=== PATIENT | male | born 1985 | race Caucasian/White ===

== ENCOUNTER 2022-09-09 21:28 | Inpatient (IN) | payer MEDICAID ==
[~2022-09-09] VITALS: Ht 177.8 cm; Wt 85.9 kg
[~2022-09-09 21:28] MED LIST: FLUO20TA28 PO; TRAZ-251 PO
[2022-09-09] MEDS ORDERED: vancomycin/NS 1 GM ADD-VANTAGE 250 ML IV ONE (23:55)
[2022-09-09] MEDS ORDERED: normal saline 1000ML IV soln IV ONE (23:55)
[2022-09-10 00:54] LABS: BASOPHILS # (AUTO) 0.1 X10'3 (0-0.2); BASOPHILS % (AUTO) 0.7 % (0-1); EOSINOPHILS # (AUTO) 0.2 X10'3 (0-0.9); EOSINOPHILS % (AUTO) 1.5 % (0-6); HEMATOCRIT 35.5 % (42.0-52.0); HEMOGLOBIN 12.1 g/dl (14.0-17.9); LYMPHOCYTES # (AUTO) 2.5 X10'3 (1.1-4.8); LYMPHOCYTES % (AUTO) 21.7 % (21-51); MEAN CORPUSCULAR HEMOGLOBIN 30.9 PG (27.0-31.0); MEAN CORPUSCULAR HGB CONC 34.1 g/dL (33.0-36.5); MEAN CORPUSCULAR VOLUME 90.5 FL (78-98); MEAN PLATELET VOLUME 7.2 FL (7.4-10.4); MONOCYTES # (AUTO) 1.3 X10'3 (0-0.9); MONOCYTES % (AUTO) 11.1 % (2-12); NEUTROPHILS # (AUTO) 7.6 X10'3 (1.8-7.7); PLATELET COUNT 509 X10'3 (140-440); RED BLOOD COUNT 3.92 X10'6 (4.70-6.10); RED CELL DISTRIBUTION WIDTH 13.2 % (11.5-14.5); WHITE BLOOD COUNT 11.7 X10'3 (4.5-11.0)
[2022-09-10 01:07] LABS: ALANINE AMINOTRANSFERASE 23 U/L (12-78); ALBUMIN 2.3 G/DL (3.4-5.0); ALBUMIN/GLOBULIN RATIO 0.5 (1.1-1.5); ALKALINE PHOSPHATASE 98 IU/L (46-116); ANION GAP 5 (8-16); ASPARTATE AMINO TRANSFERASE 23 U/L (10-37); BILIRUBIN,TOTAL 0.2 MG/DL (0.1-1.0); BLOOD UREA NITROGEN 10 MG/DL (7-18); BUN/CREATININE RATIO 18.5 (5.4-32.0); CALCIUM 7.8 MG/DL (8.5-10.1); CHLORIDE 104 MMOL/L (99-107); CREATININE 0.54 MG/DL (0.60-1.10); GLUCOSE 88 MG/DL (70-104); MAGNESIUM 1.9 MG/DL (1.5-2.4); SODIUM 140 MMOL/L (135-145); TOTAL CARBON DIOXIDE 30.6 MMOL/L (24-32); TOTAL PROTEIN 6.5 G/DL (6.4-8.2); eGFR > 90 ML/MIN
[2022-09-10 01:09] LABS: POTASSIUM 2.9 MMOL/L (3.5-5.1)
[2022-09-10 01:44] LABS: PLATELET ESTIMATE INCREASED; TOTAL CELLS COUNTED 100
[2022-09-10 01:47] LABS: ETHANOL < 0.010 GM/DL (0.0-0.010)
[2022-09-10] MEDS ORDERED: acetaminophen 325mg tablet PO PRN (02:10)
[2022-09-10] MEDS ORDERED: magnesium 4gm in 100ml NS 100 ML IV PRN ×2 (02:10→17:45)
[2022-09-10] MEDS ORDERED: mag hydrox/Alum hydrox/simeth 30ml oral suspension PO PRN (02:10)
[2022-09-10] MEDS ORDERED: potassium Cl 40MEQ/1/2NS 520ml 520 ML IV PRN (02:10)
[2022-09-10] MEDS ORDERED: potassium Cl 20 mEq SR tablet PO PRN (02:10)
[2022-09-10] MEDS ORDERED: magnesium Cl slow-release 64mg tablet PO PRN (02:10)
[2022-09-10] MEDS ORDERED: magnesium hydroxide 30ml (MOM) UD suspension PO PRN (02:10)
[2022-09-10] MEDS ORDERED: NO HOME MEDS (02:26)
[2022-09-10] MEDS: HYDROcodone/acetaminophen 5mg/325mg tablet PO PRN (04:07)
[2022-09-10 04:34] LABS: CLARITY,URINE CLEAR (Clear); COLOR,URINE YELLOW (Yellow); GLUCOSE, URINE NEGATIVE (Neg); KETONES,URINE NEGATIVE (Neg); LEUKOCYTE ESTERASE ,URINE NEGATIVE (Neg); NITRITES, URINE NEGATIVE (Neg); OCCULT BLOOD,URINE NEGATIVE (Neg); PROTEIN,URINE NEGATIVE (Neg); UROBILINOGEN,URINE 0.2 E.U/dL (0.2-1.0)
[2022-09-10 04:39] LABS: UA COLLECTION TYPE CLN CATCH MIDSTREAM
[2022-09-10 04:49] LABS: URINE AMPHETAMINE SCREEN POSITIVE (Neg); URINE BARBITUATE SCREEN NEGATIVE (Neg); URINE BENZODIAZEPINES SCREEN NEGATIVE (Neg); URINE COCAINE SCREEN NEGATIVE (Neg); URINE METHADONE SCREEN NEGATIVE (Neg); URINE OPIATE SCREEN NEGATIVE (Neg); URINE PHENCYCLIDINE SCREEN NEGATIVE (Neg)
--- NOTE | 2022-09-10 07:31 | NUR ---
REPORT GIVEN TO ISREAL BRIGGS GOING TO ROOM 4006M
[2022-09-10] MEDS: heparin, porcine 5000 units/ml vial SQ SCH ×2 (08:00→20:02)
[2022-09-10] MEDS ORDERED: clindamycin 150mg capsule PO SCH (08:00)
[2022-09-10] MEDS: K and/or MAG REPLACEMENT MC SCH ×2 (08:00→20:00)
[2022-09-10 08:10] VITALS: BP 118/77
[2022-09-10] MEDS ORDERED: loperamide 2mg capsule PO PRN (09:55)
[2022-09-10] MEDS ORDERED: iohexol 300mg/ml 100ml inj. ONE (10:21)
[2022-09-10] MEDS: clindamycin 600mg/D5W 50ml 50 ML IV SCH ×3 (11:15→20:02)
[2022-09-10] MEDS: docusate sod 100mg capsule PO SCH ×2 (11:18→20:00)
[2022-09-10] MEDS: vancomycin/NS 1 GM ADD-VANTAGE 250 ML IV SCH ×2 (12:26→17:34)
--- NOTE | 2022-09-10 13:38 | NUR ---
PRESSURE ULCER EDUCATION: DEFINITION: A pressure ulcer is an area of skin that breaks down when you stay in one position too long. The constant pressure against the skin reduces the blood flow to that area and the affected tissue dies. CAUSES: "Being bedridden or in a wheelchair "Fragile skin "Having a chronic condition, such as diabetes or vascular disease "Inability to move certain parts of your body without assistance "Older age "Incontinence of urine or stool SYMPTOMS: "A reddened area that DOES NOT turn white when pressed on - this can be the beginning of a pressure ulcer "A blister, deep sore or a crater - these can be advanced pressure ulcers FIRST AID: "Relieve the pressure on this area "Keep the area clean and dry "Call your primary doctor if you see any of the above symptoms "DO NOT massage the area "DO NOT use a donut shaped or ring shaped pillow- these actually interfere with the blood flow and cause complications PREVENTION: "Check for pressure ulcers everyday "Change position at least every two hours to relieve pressure "Use items that help relieve pressure- pillows, sheepskin, foam padding, and powders. "Keep skin clean and dry "Eat healthy well balanced meals "Exercise daily IF YOU SEE ANY OF THESE SYMPTOMS WHILE IN THE HOSPITAL - TELL YOUR NURSE IMMEDIATELY. IF YOU SEE ANY OF THESE SYMPTOMS WHILE AT HOME OR HAVE ANY QUESTIONS OR CONCERNS ABOUT PRESSURE ULCERS - CALL YOUR PRIMARY DOCTOR IMMEDIATELY. Addendum: 09/10/22 at 1339 by Jaci Moya LVN Amended: Links added.
[2022-09-10] MEDS: potassium Cl 20 mEq SR tablet PO PRN ×2 (14:33→20:01)
[2022-09-10 18:00] VITALS: BP 96/68
--- NOTE | 2022-09-10 18:15 | NUR ---
Report to Bijal SOLIS
[2022-09-10] MEDS ORDERED: K and/or MAG REPLACEMENT MC SCH (20:00)
--- NOTE | 2022-09-10 21:37 | NUR ---
Student documentation: I have reviewed and agree with all interventions, assessments performed and documented by Kristien RODRIGUEZ with my documented exceptions..
[2022-09-10 22:00] VITALS: BP 119/66
--- NOTE | 2022-09-10 22:45 | NUR ---
Student Medication Administration: For this medication-pass time frame, all medication were reviewed, dispensed, administered and documented per hospital policy by Kristine.
[2022-09-10] MEDS ORDERED: VANCOMYCIN LEVEL IV ONE (23:30)
[2022-09-11] MEDS: vancomycin/NS 1 GM ADD-VANTAGE 250 ML IV SCH
[2022-09-11] MEDS: VANCOmycin 1250MG/NS 250ml Bag 250 ML IV SCH ×3 (00:40→16:23)
[2022-09-11] MEDS: clindamycin 600mg/D5W 50ml 50 ML IV SCH ×4 (02:16→20:00)
--- NOTE | 2022-09-11 06:30 | NUR ---
Report to Elizabeth SOLIS.
[2022-09-11 06:48] LABS: BASOPHILS # (AUTO) 0.1 X10'3 (0-0.2); BASOPHILS % (AUTO) 0.9 % (0-1); EOSINOPHILS # (AUTO) 0.1 X10'3 (0-0.9); EOSINOPHILS % (AUTO) 1.3 % (0-6); HEMATOCRIT 32.7 % (42.0-52.0); HEMOGLOBIN 10.9 g/dl (14.0-17.9); LYMPHOCYTES # (AUTO) 2.3 X10'3 (1.1-4.8); LYMPHOCYTES % (AUTO) 25.3 % (21-51); MEAN CORPUSCULAR HEMOGLOBIN 30.5 PG (27.0-31.0); MEAN CORPUSCULAR HGB CONC 33.2 g/dL (33.0-36.5); MEAN CORPUSCULAR VOLUME 91.8 FL (78-98); MEAN PLATELET VOLUME 7.1 FL (7.4-10.4); MONOCYTES # (AUTO) 1.2 X10'3 (0-0.9); MONOCYTES % (AUTO) 13.2 % (2-12); NEUTROPHILS # (AUTO) 5.5 X10'3 (1.8-7.7); NEUTROPHILS % (AUTO) 59.3 % (42-75); PLATELET COUNT 429 X10'3 (140-440); RED BLOOD COUNT 3.57 X10'6 (4.70-6.10); RED CELL DISTRIBUTION WIDTH 13.3 % (11.5-14.5); WHITE BLOOD COUNT 9.2 X10'3 (4.5-11.0)
[2022-09-11 07:09] LABS: ALANINE AMINOTRANSFERASE 32 U/L (12-78); ALBUMIN/GLOBULIN RATIO 0.5 (1.1-1.5); ALKALINE PHOSPHATASE 95 IU/L (46-116); ANION GAP 3 (8-16); ASPARTATE AMINO TRANSFERASE 43 U/L (10-37); BILIRUBIN,TOTAL 0.2 MG/DL (0.1-1.0); BLOOD UREA NITROGEN 10 MG/DL (7-18); BUN/CREATININE RATIO 16.1 (5.4-32.0); CALCIUM 7.7 MG/DL (8.5-10.1); CHLORIDE 108 MMOL/L (99-107); CREATININE 0.62 MG/DL (0.60-1.10); GLUCOSE 97 MG/DL (70-104); POTASSIUM 4.4 MMOL/L (3.5-5.1); SODIUM 142 MMOL/L (135-145); TOTAL CARBON DIOXIDE 30.7 MMOL/L (24-32); TOTAL PROTEIN 5.7 G/DL (6.4-8.2); eGFR > 90 ML/MIN
[2022-09-11 07:10] VITALS: BP 109/65
[2022-09-11] MEDS: HYDROcodone/acetaminophen 5mg/325mg tablet PO PRN ×3 (07:20→19:59)
[2022-09-11 07:56] LABS: PLATELET ESTIMATE NORMAL; TOTAL CELLS COUNTED 100
[2022-09-11] MEDS: K and/or MAG REPLACEMENT MC SCH ×2 (08:00→20:00)
[2022-09-11] MEDS: docusate sod 100mg capsule PO SCH ×2 (08:00→20:00)
[2022-09-11] MEDS: heparin, porcine 5000 units/ml vial SQ SCH ×2 (08:31→20:00)
[2022-09-11 19:00] VITALS: BP 112/61
--- NOTE | 2022-09-11 20:43 | NUR ---
Pt. is awake alert oriented to person and place disoriented to time. Would like to eat more food extra nourishment provided, will request extra tray. Right leg dressing intact with mod amt of serous drainage.skin is warm dry and pink right foot pedal pulse intact. Right arm Peripheral IV intact NS infusing with antibiotic. Plan for dressing change twice a day with xeroform.
[2022-09-11] MEDS: ondansetron/PF 4mg/2ml inj IV PRN (22:06)
[2022-09-11] MEDS ORDERED: VANCOMYCIN LEVEL IV ONE (23:30)
[2022-09-12] MEDS: VANCOmycin 1250MG/NS 250ml Bag 250 ML IV SCH ×2 (00:32→08:22)
--- NOTE | 2022-09-12 01:34 | NUR ---
Vanco level checked 11.5 Dose given as ordered.
[2022-09-12] MEDS: clindamycin 600mg/D5W 50ml 50 ML IV SCH ×4 (02:08→19:44)
[2022-09-12 06:00] VITALS: BP 114/81
[2022-09-12] MEDS: ondansetron/PF 4mg/2ml inj IV PRN (06:22)
[2022-09-12 06:31] LABS: BASOPHILS # (AUTO) 0.1 X10'3 (0-0.2); BASOPHILS % (AUTO) 0.7 % (0-1); EOSINOPHILS # (AUTO) 0.2 X10'3 (0-0.9); EOSINOPHILS % (AUTO) 1.3 % (0-6); HEMATOCRIT 35.5 % (42.0-52.0); HEMOGLOBIN 11.9 g/dl (14.0-17.9); LYMPHOCYTES # (AUTO) 2.4 X10'3 (1.1-4.8); LYMPHOCYTES % (AUTO) 19.1 % (21-51); MEAN CORPUSCULAR HEMOGLOBIN 30.7 PG (27.0-31.0); MEAN CORPUSCULAR HGB CONC 33.6 g/dL (33.0-36.5); MEAN CORPUSCULAR VOLUME 91.3 FL (78-98); MEAN PLATELET VOLUME 6.9 FL (7.4-10.4); MONOCYTES # (AUTO) 1.3 X10'3 (0-0.9); MONOCYTES % (AUTO) 10.6 % (2-12); NEUTROPHILS # (AUTO) 8.4 X10'3 (1.8-7.7); NEUTROPHILS % (AUTO) 68.3 % (42-75); PLATELET COUNT 505 X10'3 (140-440); RED BLOOD COUNT 3.89 X10'6 (4.70-6.10); RED CELL DISTRIBUTION WIDTH 13.2 % (11.5-14.5); WHITE BLOOD COUNT 12.4 X10'3 (4.5-11.0)
[2022-09-12 06:50] LABS: ALANINE AMINOTRANSFERASE 43 U/L (12-78); ALBUMIN 2.1 G/DL (3.4-5.0); ALBUMIN/GLOBULIN RATIO 0.5 (1.1-1.5); ALKALINE PHOSPHATASE 113 IU/L (46-116); ANION GAP 0 (8-16); ASPARTATE AMINO TRANSFERASE 36 U/L (10-37); BILIRUBIN,TOTAL 0.2 MG/DL (0.1-1.0); BLOOD UREA NITROGEN 17 MG/DL (7-18); CALCIUM 7.8 MG/DL (8.5-10.1); CHLORIDE 104 MMOL/L (99-107); CREATININE 0.63 MG/DL (0.60-1.10); GLUCOSE 102 MG/DL (70-104); POTASSIUM 4.6 MMOL/L (3.5-5.1); SODIUM 136 MMOL/L (135-145); TOTAL CARBON DIOXIDE 31.6 MMOL/L (24-32); TOTAL PROTEIN 6.3 G/DL (6.4-8.2); eGFR > 90 ML/MIN
[2022-09-12] MEDS: heparin, porcine 5000 units/ml vial SQ SCH ×2 (07:30→19:43)
[2022-09-12] MEDS: docusate sod 100mg capsule PO SCH ×2 (08:00→19:44)
[2022-09-12] MEDS: K and/or MAG REPLACEMENT MC SCH ×2 (08:00→19:42)
[2022-09-12 09:58] VITALS: BP 111/65
[2022-09-12] MEDS: VANCOMYCIN 1,500MG in normal saline IV soln 300 ML IV SCH (15:38)
[2022-09-12] MEDS: HYDROcodone/acetaminophen 5mg/325mg tablet PO PRN (15:41)
--- NOTE | 2022-09-12 16:59 | NUR ---
pt cooperative this shift. pt drank a significant amount of milk and had a sizable appetite this shift. Pt had large amount of urine output. wound care performed per orders. Will continue to monitor pt
[2022-09-12 22:00] VITALS: BP 108/68
[2022-09-13] MEDS: VANCOMYCIN 1,500MG in normal saline IV soln 300 ML IV SCH ×5 (00:06→22:59)
[2022-09-13] MEDS: clindamycin 600mg/D5W 50ml 50 ML IV SCH ×3 (02:37→09:33)
[2022-09-13 06:00] VITALS: BP 105/61
[2022-09-13 06:06] LABS: BASOPHILS # (AUTO) 0.1 X10'3 (0-0.2); BASOPHILS % (AUTO) 0.6 % (0-1); EOSINOPHILS # (AUTO) 0.2 X10'3 (0-0.9); HEMATOCRIT 39.6 % (42.0-52.0); HEMOGLOBIN 13.3 g/dl (14.0-17.9); LYMPHOCYTES # (AUTO) 1.9 X10'3 (1.1-4.8); LYMPHOCYTES % (AUTO) 12.6 % (21-51); MEAN CORPUSCULAR HEMOGLOBIN 30.8 PG (27.0-31.0); MEAN CORPUSCULAR HGB CONC 33.6 g/dL (33.0-36.5); MEAN CORPUSCULAR VOLUME 91.6 FL (78-98); MEAN PLATELET VOLUME 6.8 FL (7.4-10.4); MONOCYTES # (AUTO) 1.3 X10'3 (0-0.9); NEUTROPHILS # (AUTO) 11.4 X10'3 (1.8-7.7); NEUTROPHILS % (AUTO) 76.8 % (42-75); PLATELET COUNT 552 X10'3 (140-440); RED BLOOD COUNT 4.33 X10'6 (4.70-6.10); RED CELL DISTRIBUTION WIDTH 13.4 % (11.5-14.5); WHITE BLOOD COUNT 14.8 X10'3 (4.5-11.0)
[2022-09-13 06:16] LABS: ALANINE AMINOTRANSFERASE 45 U/L (12-78); ALBUMIN 2.4 G/DL (3.4-5.0); ALBUMIN/GLOBULIN RATIO 0.5 (1.1-1.5); ALKALINE PHOSPHATASE 123 IU/L (46-116); ANION GAP 5 (8-16); ASPARTATE AMINO TRANSFERASE 32 U/L (10-37); BILIRUBIN,TOTAL 0.2 MG/DL (0.1-1.0); BLOOD UREA NITROGEN 19 MG/DL (7-18); BUN/CREATININE RATIO 28.4 (5.4-32.0); CALCIUM 8.5 MG/DL (8.5-10.1); CHLORIDE 102 MMOL/L (99-107); CREATININE 0.67 MG/DL (0.60-1.10); GLUCOSE 109 MG/DL (70-104); SODIUM 136 MMOL/L (135-145); TOTAL CARBON DIOXIDE 29.1 MMOL/L (24-32); TOTAL PROTEIN 7.2 G/DL (6.4-8.2); eGFR > 90 ML/MIN
[2022-09-13 06:49] LABS: PLATELET ESTIMATE INCREASED; TOTAL CELLS COUNTED 100
[2022-09-13] MEDS: docusate sod 100mg capsule PO SCH ×2 (07:01→20:25)
[2022-09-13] MEDS: heparin, porcine 5000 units/ml vial SQ SCH ×2 (07:01→20:26)
[2022-09-13] MEDS: K and/or MAG REPLACEMENT MC SCH ×2 (07:57→20:00)
[2022-09-13] MEDS: HYDROcodone/acetaminophen 5mg/325mg tablet PO PRN (09:38)
[2022-09-13] MEDS: CefTRIAXone 2gm/D5W 50ml BAG 50 ML IV SCH (11:55)
[2022-09-13] MEDS: metroNIDAZOLE 500mg tablet PO SCH ×2 (13:13→20:25)
--- NOTE | 2022-09-13 15:14 | NUR ---
WOUND INFECTION EDUCATION PROVIDED BY WOUND CARE 1. Patient instructed to call their primary doctor, or go the ED immediately if any of the following symptoms occur: * Increased pain in wound * Increase in drainage from the wound * Redness in the skin surrounding the wound * Warmth in the skin surrounding the wound * Bleeding from the wound * Temperature of 101 or greater 2. If any of these occur while in the hospital tell a nurse immediately. Addendum: 09/13/22 at 1515 by Jaci Moya LVN Amended: Links added.
[2022-09-13] MEDS ORDERED: VANCOMYCIN LEVEL IV ONE (15:30)
[2022-09-13] MEDS ORDERED: GADOTERATE MEGLUMINE 7.5 MMOL/15 ML VIAL IV ONE (17:02)
--- NOTE | 2022-09-13 17:23 | NUR ---
pt continues to have impressive appetite. large urine output this shift as well. wound care performed per orders. bowel movement this am shift. will continue to monitor pt
--- NOTE | 2022-09-13 18:15 | NUR ---
Patient in room ORTH[facility] 4006. I have received report from Lo SOLIS and had the opportunity to ask questions and assume patient care.
[2022-09-13 22:00] VITALS: BP 118/56
[2022-09-14] MEDS: VANCOMYCIN 1,500MG in normal saline IV soln 300 ML IV SCH ×2 (04:44→11:07)
[2022-09-14 06:00] VITALS: BP 123/69
--- NOTE | 2022-09-14 06:26 | NUR ---
Problems reprioritized. Patient report given, questions answered & plan of care reviewed with Damion SOLIS.
[2022-09-14 06:56] LABS: BASOPHILS # (AUTO) 0.1 X10'3 (0-0.2); BASOPHILS % (AUTO) 0.6 % (0-1); EOSINOPHILS # (AUTO) 0.2 X10'3 (0-0.9); EOSINOPHILS % (AUTO) 1.6 % (0-6); HEMATOCRIT 37.1 % (42.0-52.0); HEMOGLOBIN 12.5 g/dl (14.0-17.9); LYMPHOCYTES # (AUTO) 2.1 X10'3 (1.1-4.8); LYMPHOCYTES % (AUTO) 17.1 % (21-51); MEAN CORPUSCULAR HEMOGLOBIN 30.9 PG (27.0-31.0); MEAN CORPUSCULAR HGB CONC 33.6 g/dL (33.0-36.5); MEAN CORPUSCULAR VOLUME 91.9 FL (78-98); MEAN PLATELET VOLUME 6.9 FL (7.4-10.4); MONOCYTES # (AUTO) 1.1 X10'3 (0-0.9); MONOCYTES % (AUTO) 9.1 % (2-12); NEUTROPHILS # (AUTO) 8.9 X10'3 (1.8-7.7); NEUTROPHILS % (AUTO) 71.6 % (42-75); PLATELET COUNT 451 X10'3 (140-440); RED BLOOD COUNT 4.03 X10'6 (4.70-6.10); WHITE BLOOD COUNT 12.4 X10'3 (4.5-11.0)
[2022-09-14 07:16] LABS: ALANINE AMINOTRANSFERASE 50 U/L (12-78); ALBUMIN 2.3 G/DL (3.4-5.0); ALBUMIN/GLOBULIN RATIO 0.5 (1.1-1.5); ALKALINE PHOSPHATASE 137 IU/L (46-116); ANION GAP 6 (8-16); ASPARTATE AMINO TRANSFERASE 42 U/L (10-37); BILIRUBIN,TOTAL 0.2 MG/DL (0.1-1.0); BLOOD UREA NITROGEN 26 MG/DL (7-18); BUN/CREATININE RATIO 38.8 (5.4-32.0); CALCIUM 8.4 MG/DL (8.5-10.1); CHLORIDE 103 MMOL/L (99-107); CREATININE 0.67 MG/DL (0.60-1.10); GLUCOSE 107 MG/DL (70-104); POTASSIUM 4.4 MMOL/L (3.5-5.1); SODIUM 138 MMOL/L (135-145); TOTAL CARBON DIOXIDE 29.1 MMOL/L (24-32); TOTAL PROTEIN 6.8 G/DL (6.4-8.2); eGFR > 90 ML/MIN
[2022-09-14 07:34] LABS: PLATELET ESTIMATE INCREASED; TOTAL CELLS COUNTED 100
[2022-09-14] MEDS: K and/or MAG REPLACEMENT MC SCH ×2 (08:00→20:00)
[2022-09-14] MEDS: CefTRIAXone 2gm/D5W 50ml BAG 50 ML IV SCH (08:07)
[2022-09-14] MEDS: metroNIDAZOLE 500mg tablet PO SCH ×3 (08:07→21:00)
[2022-09-14] MEDS: docusate sod 100mg capsule PO SCH ×2 (08:07→21:03)
[2022-09-14] MEDS: heparin, porcine 5000 units/ml vial SQ SCH ×2 (08:08→21:04)
[2022-09-14 10:00] VITALS: BP 132/79
[2022-09-14] MEDS: HYDROcodone/acetaminophen 5mg/325mg tablet PO PRN (11:10)
[2022-09-14] MEDS ORDERED: VANCOMYCIN LEVEL IV ONE (16:30)
[2022-09-14 18:00] VITALS: BP 136/85
[2022-09-14] MEDS: VANCOmycin 1250MG/NS 250ml Bag 250 ML IV SCH ×2 (19:10→23:35)
[2022-09-14 22:00] VITALS: BP 110/60
--- NOTE | 2022-09-15 03:46 | NUR ---
Student documentation: I have reviewed and agree with all interventions, assessments performed and documented by Deisy, student RN.
[2022-09-15] MEDS: VANCOmycin 1250MG/NS 250ml Bag 250 ML IV SCH ×4 (05:02→23:18)
--- NOTE | 2022-09-15 06:21 | NUR ---
Problems reprioritized. Patient report given, questions answered & plan of care reviewed with Gely SOLIS.
--- NOTE | 2022-09-15 06:41 | NUR ---
Patient in room ORTH[facility] 4006. I have received report from Amy Arita and had the opportunity to ask questions and assume patient care.
[2022-09-15 06:43] VITALS: BP 102/58
[2022-09-15] MEDS: K and/or MAG REPLACEMENT MC SCH ×2 (07:39→20:00)
[2022-09-15] MEDS: metroNIDAZOLE 500mg tablet PO SCH ×3 (07:48→21:08)
[2022-09-15] MEDS: CefTRIAXone 2gm/D5W 50ml BAG 50 ML IV SCH (07:48)
[2022-09-15] MEDS: heparin, porcine 5000 units/ml vial SQ SCH ×2 (07:49→21:09)
[2022-09-15] MEDS: docusate sod 100mg capsule PO SCH ×2 (07:57→21:08)
[2022-09-15] MEDS ORDERED: VANCOMYCIN LEVEL IV ONE (10:30)
[2022-09-15 11:25] LABS: WHITE BLOOD COUNT 9.9 X10'3 (4.5-11.0)
[2022-09-15 11:26] LABS: BASOPHILS # (AUTO) 0.1 X10'3 (0-0.2); BASOPHILS % (AUTO) 0.6 % (0-1); EOSINOPHILS # (AUTO) 0.2 X10'3 (0-0.9); EOSINOPHILS % (AUTO) 1.6 % (0-6); HEMATOCRIT 37.7 % (42.0-52.0); HEMOGLOBIN 12.6 g/dl (14.0-17.9); LYMPHOCYTES # (AUTO) 1.6 X10'3 (1.1-4.8); LYMPHOCYTES % (AUTO) 16.3 % (21-51); MEAN CORPUSCULAR HEMOGLOBIN 30.8 PG (27.0-31.0); MEAN CORPUSCULAR HGB CONC 33.3 g/dL (33.0-36.5); MEAN CORPUSCULAR VOLUME 92.4 FL (78-98); MONOCYTES % (AUTO) 10.1 % (2-12); NEUTROPHILS % (AUTO) 71.4 % (42-75); PLATELET COUNT 455 X10'3 (140-440); RED BLOOD COUNT 4.08 X10'6 (4.70-6.10); RED CELL DISTRIBUTION WIDTH 13.2 % (11.5-14.5)
[2022-09-15 11:36] LABS: ALANINE AMINOTRANSFERASE 103 U/L (12-78); ALBUMIN 2.4 G/DL (3.4-5.0); ALBUMIN/GLOBULIN RATIO 0.5 (1.1-1.5); ALKALINE PHOSPHATASE 162 IU/L (46-116); ANION GAP 6 (8-16); ASPARTATE AMINO TRANSFERASE 111 U/L (10-37); BILIRUBIN,TOTAL 0.2 MG/DL (0.1-1.0); BLOOD UREA NITROGEN 17 MG/DL (7-18); BUN/CREATININE RATIO 28.3 (5.4-32.0); CALCIUM 8.3 MG/DL (8.5-10.1); CHLORIDE 102 MMOL/L (99-107); GLUCOSE 127 MG/DL (70-104); POTASSIUM 4.1 MMOL/L (3.5-5.1); SODIUM 136 MMOL/L (135-145); TOTAL CARBON DIOXIDE 27.7 MMOL/L (24-32); TOTAL PROTEIN 6.9 G/DL (6.4-8.2); VANCOMYCIN,TROUGH 16.6 UG/ML (6.0-14.0); eGFR > 90 ML/MIN
--- NOTE | 2022-09-15 12:51 | NUR ---
Initial: Pt admit DX RLE cellulitis w/ distal calf abscess, schizophrenia, meth/tobacco abuse, hypokalemia, and homelessness per EMR. RLE cluster of 4 wounds depth undeterminable given necrotic tissue per WOC note. Pt PO 100% avg regular diet meeting estimated needs. LBM 09/14 per EMR. No nutrition interventions at this time. Will continue to follow. Rec: 1. continue regular diet 2. routine bowel care 3. scaled wt this admit; subsequent weekly wts Addendum: 09/15/22 at [address] Amended: Links added.
--- NOTE | 2022-09-15 15:15 | NUR ---
Patient has had increasingly frequent outbursts of yelling obscenities, and arguing with people/things that are not present. Patient is tangential in speech, poor historian and unable to make congruent sentences. Patient stated he has liven in [place], [place], [place], [place], [place] etc, indicating 19 months, 22 days and 2 days as lengths of time. patient stated his parents are both . His father was killed in a logging accident and him mother passed in an auto accident recently. Unknown if this is accurate. Patient stated he lives [place] bridge in [place] - unknown which one. He does not have any friends and "finds people who are smoking pot or have a drink" and stays with them in the homeless environment. Patient is very labile in mood, his affect is blunt and at times, pressured speech. Patient is obviously having auditory/visual hallucinations, his ability to maintain eye contact is poor and concentration is difficult. Patient is observed meticulously zipping/unzipping zippers on his backpack, organizing/reorganizing items in his room, places urinals (used) in random locations within the room. Patient was turning up the music very loudly. He also placed the laundry bin underneath the door handle to prevent the door from opening. Patient denies being seen for any mental health concerns but said he had visited the [facility] a couple of times. Patient is oblivious to his malodorousness, declines any bathing amenities. Patient has significant wound to his lower extremity and would most likely be unable to care for himself or provide wound care while out in the community.
--- NOTE | 2022-09-15 17:59 | NUR ---
Patient continues to have seemingly uncontrollable outbursts. Patient bangs tray item together making very loud noises, throwing things on the floor.
[2022-09-15 18:00] VITALS: BP 138/80
--- NOTE | 2022-09-15 18:20 | NUR ---
Problems reprioritized. Patient report given, questions answered & plan of care reviewed with Amy Arita
[2022-09-15 22:00] VITALS: BP 136/78
--- NOTE | 2022-09-16 02:46 | NUR ---
Student documentation: I have reviewed and agree with all interventions, assessments performed and documented by YOANA Olivas student.
[2022-09-16] MEDS: VANCOmycin 1250MG/NS 250ml Bag 250 ML IV SCH (04:55)
[2022-09-16 06:00] VITALS: BP 110/66
--- NOTE | 2022-09-16 06:49 | NUR ---
Problems reprioritized. Patient report given, questions answered & plan of care reviewed with Sabra RN.
[2022-09-16] MEDS: CefTRIAXone 2gm/D5W 50ml BAG 50 ML IV SCH (07:59)
[2022-09-16] MEDS: metroNIDAZOLE 500mg tablet PO SCH (08:00)
[2022-09-16] MEDS: docusate sod 100mg capsule PO SCH (08:00)
[2022-09-16] MEDS: heparin, porcine 5000 units/ml vial SQ SCH (08:01)
--- NOTE | 2022-09-16 12:13 | NUR ---
patient stated he wanted to leave. patient stated the doctor told him he could leave he just has to wait for another dr. we told patient he has to wait. the tech went into room around 1130am and saw the patient was gone along with his stuff. I checked room to see if I could find the iv. I could not find the iv. i advised the research manager, security and I called pepper non emergent dispatcher gave her a description of patient. i paged the hospitalist.
== END 2022-09-16 11:30 | disposition left against medical advice (07) | DRG 383 ==
LOC: ER 21:28 → ED HOLD 09-10 02:10 → ORTHO 4S 09-10 08:05
PROVIDERS: ADMIT Internal Medicine; ATTEND Family Medicine
PROC: BQ2R1ZZ Computerized Tomography (CT Scan) of Right Lower Extremity using Low Osmolar Contrast (ICD-10-PCS; principal; 2022-09-10)
DX: L03.115 Cellulitis of right lower limb (principal); E11.9 Type 2 diabetes mellitus without complications; L02.415 Cutaneous abscess of right lower limb; F17.200 Nicotine dependence, unspecified, uncomplicated; E87.6 Hypokalemia; F15.20 Other stimulant dependence, uncomplicated; F20.9 Schizophrenia, unspecified; Z53.29 Procedure and treatment not carried out because of patient's decision for other reasons; Z59.00 Homelessness unspecified; Z56.0 Unemployment, unspecified; Z79.899 Other long term (current) drug therapy; Z71.6 Tobacco abuse counseling
CPT/HCPCS: 36415; 73701; 73720; 80053; 80202; 80305; 80320; 81003; 83605; 83735; 84132; 84145; 85007; 85025; 87040; 87081; 99285; A6196; A6223; A6253; A6402; A6446; A6449; A9575; G0378; J0696; J1644; J2405; J3370; J3480; J3490; J7030; J7040; Q9967